=== PATIENT | female | born 1995 | race Caucasian/White ===

== ENCOUNTER 2016-03-20 15:49 | Inpatient (IN) ==
[2016-03-20] MEDS ORDERED: 0.9 % Sodium Chloride 1,000 ML IVC ONE (18:05)
[2016-03-20 18:42] LABS: Basophils # 0.1 K/mcL (0.0-0.2); Basophils % 0.5 %; Eosinophils % 0.1 %; Hematocrit 42.1 % (35.3-44.9); Hemoglobin 13.2 g/dL (11.5-15.4); Immature Granulocytes % 0.7 % (0-4); Immature Platelets 4.3 % (1.1-6.1); Lymphocytes # 3.1 K/mcL (0.6-4.6); Mean Corpuscular HGB Conc 31.4 g/dL (31.6-35.5); Mean Corpuscular Hemoglobin 27.7 pg (28.0-33.3); Mean Corpuscular Volume 88.3 fL (83.0-100.0); Mean Platelet Volume 10.4 fL (9.4-12.4); Monocytes # 1.4 K/mcL (0.0-1.3); Monocytes % 9.4 %; Neutrophils # 10.6 K/mcL (1.6-8.9); Platelet Count 265 K/mcL (140-400); Red Blood Count 4.77 M/mcL (3.82-4.97); Red Cell Distribution Width 13.6 % (11.5-14.5); Segmented Neutrophils % 69.3 %
[2016-03-20 18:54] LABS: BUN/Creatinine Ratio 10 (6-26); Blood Urea Nitrogen 11 mg/dL (7-20); Calcium 9.4 mg/dL (8.6-10.8); Carbon Dioxide 20 mEq/L (19-29); Chloride 103 mEq/L (98-109); Glucose 98 mg/dL (70-99); Osmolality,Calculated 279 (280-300); Potassium 4.3 mEq/L (3.5-4.5); Sodium 135 mEq/L (136-145); eGFR For African Americans > 60; eGFR For Non-African Americans > 60
--- NOTE | 2016-03-20 21:30 | Emergency Department Note ---
Disposition Clinical Impression: Pyelonephritis Disposition: Home, Self-Care Condition: Good Referrals: NO,PCP [Primary Care Provider] - Forms: Work/School Release, ED Satisfaction Letter Abdominal Pain HPI - General Chief Complaint: ED Abdominal Pain Stated Complaint: Abdominal Pain Time Seen by Provider: 03/20/16 17:44 Source: patient Nursing Notes Reviewed: Yes Vital Signs Reviewed: Yes - History of Present Illness HPI Narrative: 20-year-old female with history of abdominal pain, flank pain for approximately one week. Pain today is worsened and she has developed a fever. She has no urinary symptoms however admits the pain has progressed from her flank down into her suprapubic region. She is febrile on arrival here. She is tachycardic. Her blood pressure stable on arrival. Pain Scale: 6 - Related Data Home Medications Medication Instructions Recorded Confirmed No Known Home Drugs 03/20/16 03/20/16 Allergies Allergy/AdvReac Type Severity Reaction Status Date / Time No Known Allergies Allergy Verified 05/13/15 10:07 All systems ED: reviewed and negative except as stated. Abdominal Pain PMH - Past Medical History Medical history: Reports: no medical history Female Surgical History: Reports: appendectomy [employer] history: Reports: polycystic ovary syndrome Psychiatric history: Reports: no psych history - Social History Smoking status: Current some day smoker Alcohol use: Reports: none Drug use: Reports: none Physical Exam - General Limitations: no limitations General appearance: alert, in no apparent distress Course Vital Signs Temperature 102.1 F H 03/20/16 15:53 Pulse Rate 128 03/20/16 15:53 Respiratory Rate 16 03/20/16 15:53 Blood Pressure 114/84 03/20/16 15:53 O2 Sat by Pulse Oximetry 96 03/20/16 15:53 Temperature 102.1 F H 03/20/16 15:53 Pulse Rate 128 03/20/16 17:56 Respiratory Rate 16 03/20/16 17:56 Blood Pressure 114/84 03/20/16 17:56 O2 Sat by Pulse Oximetry 96 03/20/16 17:56 Oxygen Delivery Oxygen Delivery Room Air Abdominal Pain - MDM Narrative Medical decision making narrative: 20-year-old female with suspected pyelonephritis. CT evidence of pyelonephritis. Cultures obtained. She did meet systemic inflammatory response syndrome on arrival. Broad spectrum antibiotics were initiated. IV fluids were initiated. Plan to admit for antibiotic therapy, IV fluids, monitoring. - Lab Data Result diagrams: 03/20/16 18:29 03/20/16 18:29 Lab Results 03/20/16 03/20/16 03/20/16 Range/Units 18:29 18:29 18:29 WBC 15.3 H (4.3-11.1) K/mcL RBC 4.77 (3.82-4.97) M/mcL Hgb 13.2 (11.5-15.4) g/dL Hct 42.1 (35.3-44.9) % MCV 88.3 (83.0-100.0) fL MCH 27.7 L (28.0-33.3) pg MCHC 31.4 L (31.6-35.5) g/dL RDW 13.6 (11.5-14.5) % Plt Count 265 (140-400) K/mcL MPV 10.4 (9.4-12.4) fL Immature Gran % 0.7 (0-4) % Seg Neutrophils % 69.3 % Lymphocytes % 20.0 % Monocytes % 9.4 % Eosinophils % 0.1 % Basophils % 0.5 % Neutrophils # 10.6 H (1.6-8.9) K/mcL Lymphocytes # 3.1 (0.6-4.6) K/mcL Monocytes # 1.4 H (0.0-1.3) K/mcL Eosinophils # 0.0 (0.0-0.6) K/mcL Basophils # 0.1 (0.0-0.2) K/mcL Immature Plt Fraction 4.3 (1.1-6.1) % Sodium 135 L (136-145) mEq/L Potassium 4.3 (3.5-4.5) mEq/L Chloride 103 (98-109) mEq/L Carbon Dioxide 20 (19-29) mEq/L BUN 11 (7-20) mg/dL Creatinine 1.08 (0.57-1.11) mg/dL Est GFR ( Amer) > 60 Est GFR (Non-Af Amer) > 60 BUN/Creatinine Ratio 10 (6-26) Glucose 98 (70-99) mg/dL Calculated Osmolality 279 L (280-300) Lactic Acid 0.7 (0.5-2.2) mmol/L Calcium 9.4 (8.6-10.8) mg/dL Beta HCG, Quant < 1 (0-4) mIU/ml
[2016-03-20 22:35] LABS: Bilirubin,Urine Negative (Negative); Blood,Urine Trace (Negative); Clarity,Urine Cloudy (Clear); Color,Urine Yellow (Yellow); Glucose,Urine (UA) Normal (Normal); Ketones,Urine Trace mg/dL (Negative); Leukocyte Esterase,Urine Moderate (Negative); Nitrite,Urine Positive (Negative); Protein,Urine Trace mg/dL (Neg-Trace); Specific Gravity,Urine > 1.030 (1.010-1.025); Urobilinogen,Urine Normal (Normal)
[2016-03-20 22:38] LABS: Bacteria,Urine Many per hpf (None-Few); Squamous Epithelial Cell,Urine Many per lpf (None-Few); WBC,Urine TNTC per hpf (0-3)
[2016-03-20 22:48] LABS: Hyaline Casts,Urine Few per lpf (None-Few); Yeast,Urine Moderate per hpf (None Seen)
[2016-03-21] MEDS ORDERED: Acetaminophen 325 MG TABLET PO PRN (00:34)
[2016-03-21] MEDS ORDERED: *HR* OxyCODONE Immed Rel 5 MG TABLET PO PRN (00:34)
[2016-03-21] MEDS ORDERED: Naloxone 0.4 MG/ML INJ IVP PRN (00:34)
[2016-03-21] MEDS ORDERED: Ondansetron ODT 4 MG TAB.RAPDIS SL PRN (00:34)
--- NOTE | 2016-03-21 00:45 | Internal Med History&Physical ---
Date of Encounter: 03/21/16 Time of Encounter: 00:39 Assessment and Plan (1) Pyelonephritis Current visit: Yes Status: Acute 1. Blood and urine cultures collected in ER. 2. Will continue aggressive IVF hydration. 3. Will treat with IV antibiotics and adjust according to blood and urine culture results. 4. Pain and nausea control. 5. Consider repeat imaging if symptoms do not improve in 36-48 hours. 6. Recommend outpatient urology consultation given history of recurrent UTI. (2) DVT prophylaxis Current visit: Yes Status: Acute 1. Heparin SQ. Internal Medicine - H&P: HPI Chief complaint: flank pain, fever, vomiting, dysuria Admitted From: Emergency Dept Plans for Post Hospital Care: Home History of present illness: Ms. Rubio is a 20 year old female who presents with a 2 week history of dysuria, urinary urgency, frequency, flank pain, nausea, vomiting, and most recently fevers. She did not go to the ER or urgent care until today because [place] and she was concerned that her insurance would not cover out of state hospitals. She returned back to the [facility] recently and, because of persistent and worsening symptoms, she was seen and evaluated in the ER today. In the ER, she was found to have evidence of pyelonephritis, dehydration, and significant flank pain. She was therefore admitted to hospitalist service. Upon my assessment of the patient, she appears quite uncomfortable, ill- appearing, dehydrated, but nontoxic. She has a history of recurrent UTI and has had several UTIs in the last year. She has never had pyelonephritis or hospitalization for UTI in the past, however. Workup in the ER included routine labs, urinalysis, and CT of the abdomen and pelvis confirming suspicion of pyelonephritis. There is also concern of lung pathology on the limited lung views of her CT of abdomen. She denies any chronic lung disease, but she has had recent pneumonia, however. She denies any chest pain or difficulty breathing presently. She does smoke on rare occasions. She states that she and her have been trying to get recently but have been unsuccessful. Of note, her urine test was negative in the ER. Past Med Surg Social Fam HX - Past Medical History Attestation: Yes The following information was validated with the patient. Source: patient, obtained from family Medical history: other (recurrent UTI) Psychiatric history: no psych history - Past Surgical History Surgical History: appendectomy - Social History Smoking Status: Current some day smoker Smokeless Tobacco Status: No Alcohol use: none Drug use: none Current living situation: Home, With Family Activity Level: Independent ambulation Recent Out of Country Travel Within the Last 8 Weeks: No - Family History Father Living Status: Still Living Hx Family Genitourinary Disorders: Yes (CKD) Mother Living Status: Still Living Internal Medicine - H&P: Meds No Known Home Drugs 03/20/16 [History] Allergies shellfish derived Allergy (Verified 03/21/16 00:12) Swelling of Lip/Tongue/Throat Patient states she is allergic to all "seafood". - Constitutional Constitutional: chills, fever(s), no night sweats - EENT Eyes: no blurry vision, no change in vision Ears: no ear pain, no tinnitus Nose, mouth and throat: no nasal congestion, no nasal discharge, no sinus pressure, no sore throat - Cardiovascular Cardiovascular ROS IM: no chest pain, no dyspnea, no dyspnea on exertion - Respiratory Respiratory: no cough, no dyspnea, no hemoptysis, no wheezing - Gastrointestinal Gastrointestinal: nausea, vomiting, no abdominal pain, no diarrhea, no hematemesis, no hematochezia, no melena - Genitourinary Genitourinary: dysuria, flank pain, no hematuria - Musculoskeletal Musculoskeletal ROS IM: no arthralgias, no back pain, no joint swelling - Integumentary Integumentary IM: no rash, no jaundice - Neurological Neurological ROS: no dizziness, no focal weakness, no frequent falls, no headache(s) - Psychiatric Psychiatric: no anxiety, no depression - Endocrine Endocrine IM: no cold intolerance, no heat intolerance, no polydipsia, no polyuria - Hematologic/Lymphatic Hematologic/Lymphatic: no easy bruising, no lymphadenopathy - Allergic/Immunologic Allergic/Immunologic: no wheezing, no GI upset with certain foods - Constitutional Vitals: Temp Pulse Resp BP Pulse Ox 98 F 98 13 115/76 96 03/20/16 23:46 03/20/16 23:46 03/20/16 23:46 03/20/16 23:46 03/20/16 23:46 General appearance: Present: cooperative, mild distress, A&O X 3, pleasant - Head Head exam: Present: atraumatic, normal inspection - Expanded Head Exam Head exam expanded: Absent: abrasion, contusion, general tenderness - Eye Eye exam: Present: normal appearance, PERRL. Absent: scleral icterus Pupils: Present: normal accommodation - ENT ENT exam: Present: mucous membranes dry, normal exam, normal oropharynx - Neck Neck exam general surgery: Present: full ROM, normal inspection, supple. Absent : tenderness, thyromegaly - Respiratory Respiratory exam: Present: CTAB. Absent: chest wall tenderness, rales, rhonchi , wheezes - Cardiovascular Cardiovascular exam: Present: RRR, +S1, +S2. Absent: diastolic murmur, systolic murmur - GI/Abdominal GI/Abdominal exam: Present: normal bowel sounds, soft, tenderness (LUQ-->left flank), no peritoneal signs. Absent: guarding, hepatomegaly, mass, rebound, splenomegaly - Extremities Exam Extremities exam: Present: warm. Absent: calf tenderness, full ROM, joint swelling, pedal edema - Back Exam Back exam: Present: CVA tenderness (L), normal inspection. Absent: CVA tenderness (R) - Neurological Exam Neurological exam: Present: alert, CN II-XII intact, oriented X3, no focal deficits - Psychiatric Psychiatric exam: Present: normal affect, normal mood - Skin Skin exam: Present: dry, warm. Absent: rash Internal Med - H&P Results - Labs CBC & Chem 7: 03/20/16 18:29 03/20/16 18:29 Labs: Urine 03/20/16 Range/Units 22:30 Urine Color Yellow (Yellow) Urine Clarity Cloudy A (Clear) Urine pH 6.0 (5.0-8.0) pH Units Ur Specific [place] > 1.030 H (1.010-1.025) Urine Protein Trace (Neg-Trace) mg/dL Urine Glucose (UA) Normal (Normal) mg/dL - Diagnostic Studies CT scan - abdomen Additional comments: report/results reviewed
[2016-03-21] MEDS: *HR* Heparin 5,000 UNIT/ML VIAL SQ SCH ×3 (00:54→17:23)
[2016-03-21] MEDS: Pantoprazole 40 MG VIAL IVP SCH ×2 (01:09→08:09)
[2016-03-21] MEDS: 0.9 % Sodium Chloride 1,000 ML IVC SCH ×3 (01:09→19:00)
[2016-03-21 04:42] LABS: Basophils # 0.1 K/mcL (0.0-0.2); Basophils % 0.6 %; Eosinophils # 0.1 K/mcL (0.0-0.6); Eosinophils % 0.5 %; Hematocrit 35.6 % (35.3-44.9); Hemoglobin 11.7 g/dL (11.5-15.4); Immature Granulocytes % 0.6 % (0-4); Lymphocytes # 3.4 K/mcL (0.6-4.6); Lymphocytes % 23.8 %; Mean Corpuscular HGB Conc 32.9 g/dL (31.6-35.5); Mean Corpuscular Hemoglobin 28.7 pg (28.0-33.3); Mean Corpuscular Volume 87.3 fL (83.0-100.0); Mean Platelet Volume 10.8 fL (9.4-12.4); Monocytes # 1.6 K/mcL (0.0-1.3); Monocytes % 11.3 %; Neutrophils # 9.1 K/mcL (1.6-8.9); Platelet Count 211 K/mcL (140-400); Red Blood Count 4.08 M/mcL (3.82-4.97); Red Cell Distribution Width 13.6 % (11.5-14.5); Segmented Neutrophils % 63.2 %
[2016-03-21 04:58] LABS: Alanine Aminotransferase 24 Units/L (0-55); Albumin 2.8 g/dL (3.5-5.0); Albumin/Globulin Ratio 0.5 (1.1-2.2); Alkaline Phosphatase 70 Units/L (38-126); Aspartate Amino Transferase 20 Units/L (5-34); BUN/Creatinine Ratio 11 (6-26); Bilirubin,Total 0.4 mg/dL (0.2-1.2); Blood Urea Nitrogen 10 mg/dL (7-20); Calcium 8.8 mg/dL (8.6-10.8); Carbon Dioxide 17 mEq/L (19-29); Chloride 110 mEq/L (98-109); Globulin 5.8 g/dL (2.4-3.5); Glucose 121 mg/dL (70-99); Magnesium 2.1 mg/dL (1.7-2.2); Osmolality,Calculated 282 (280-300); Potassium 4.5 mEq/L (3.5-4.5); Sodium 136 mEq/L (136-145); Total Protein 8.6 g/dL (6.0-8.3); eGFR For African Americans > 60; eGFR For Non-African Americans > 60
[2016-03-21] MEDS: *HR* Morphine 2 MG/ML SYRINGE IVP PRN ×2 (06:00→20:34)
--- NOTE | 2016-03-21 14:08 | Internal Med Progress Note ---
Date of Encounter: 03/21/16 Time of Encounter: 14:05 - Assessment and plan (1) Sepsis Current Visit: Yes Status: Acute Assessment and plan: Secondary to left pyelonephritis Tachycardia in white blood cell count of 15.3 Continue Rocephin IV, follow cultures Continue IV fluids CT scan showed possible left pyelonephritis Qualifiers: Sepsis type: sepsis due to unspecified organism Qualified Code(s): A41.9 - Sepsis, unspecified organism (2) Tobacco abuse Current Visit: Yes Status: Acute Assessment and plan: Smoking cessation counseling, nicotine patch offered (3) PCOS (polycystic ovarian syndrome) Current Visit: Yes Status: Acute Assessment and plan: Used to be on metformin and oral contraceptives (4) Leukocytosis Current Visit: Yes Status: Acute Assessment and plan: Secondary to sepsis Qualifiers: Leukocytosis type: unspecified Qualified Code(s): D72.829 - Elevated white blood cell count, unspecified (5) Pyelonephritis Current Visit: Yes Status: Acute Assessment and plan: High risk due to sepsis and pyelonephritis - Time Spent With Patient Greater than 35 minutes - Subjective Interval history: Denies any left flank pain she was having before, no fevers overnight, no abdominal pain, less dysuria. No abdominal pain, no cough, shortness of breath or chest pain. - Constitutional Vitals: Temp Pulse Resp BP Pulse Ox 97.5 F L 118 18 133/79 96 03/21/16 11:43 03/21/16 11:43 03/21/16 11:43 03/21/16 11:43 03/21/16 11:43 General appearance: Present: cooperative, mild distress, A&O X 3, pleasant, obese - Head Head exam: Present: atraumatic, normocephalic - Eye Eye exam: Present: PERRL, conjuntiva pink, sclera anicteric Pupils: Present: PERRL - Neck Neck exam general surgery: Present: supple, trachea midline. Absent: lymphadenopathy - Respiratory Respiratory exam: Present: CTAB. Absent: accessory muscle use, rales, rhonchi, wheezes - Cardiovascular Cardiovascular exam: Present: RRR, +S1, +S2, tachycardia. Absent: diastolic murmur, gallop, rubs, systolic murmur - GI/Abdominal GI/Abdominal exam: Present: normal bowel sounds, soft, no peritoneal signs. Absent: distended, tenderness - Extremities Exam Extremities exam: Present: warm, radial pulses palpable and symetrical. Absent : calf tenderness, cyanotic, pedal edema - Neurological Exam Neurological exam: Present: CN II-XII intact, oriented X3, no focal deficits. Absent: pronater drift, facial droop, speech deficit - Skin Skin exam: Present: dry, intact Internal Medicine: Result - Labs CBC & Chem 7: 03/21/16 04:27 03/21/16 04:27 Labs: Short CBC 03/21/16 Range/Units 04:27 WBC 14.4 H (4.3-11.1) K/mcL Hgb 11.7 D (11.5-15.4) g/dL Hct 35.6 (35.3-44.9) % Plt Count 211 (140-400) K/mcL Neutrophils # 9.1 H (1.6-8.9) K/mcL BMP 03/21/16 04:27 Sodium 136 Potassium 4.5 Chloride 110 H Carbon Dioxide 17 L BUN 10 Creatinine 0.89 Glucose 121 H Calcium 8.8 Liver Function 03/21/16 Range/Units 04:27 Total Bilirubin 0.4 (0.2-1.2) mg/dL AST 20 (5-34) Units/L ALT 24 (0-55) Units/L Alkaline Phosphatase 70 (38-126) Units/L Albumin 2.8 L (3.5-5.0) g/dL - Impressions Impressions Chest CT 03/21/16 08:15 IMPRESSION: Partially calcified mediastinal and bilateral hilar lymph nodes, some of which appear prominent in the right hilar and mediastinal regions as above. In addition there are numerous scattered subcentimeter pulmonary nodules measuring maximally 6 mm in size, some of which are noncalcified while others are partially calcified. Constellation of findings are felt most likely to reflect granulomatous disease such as histoplasmosis. If the patient develops chest symptoms or there is other clinical indication, consideration could be given to bronchoscopy. However, in addition there are some irregular small opacities noted to the right upper lobe and to the superior segment of the left lower lobe which could relate to the same process or could reflect a separate nonspecific infectious or inflammatory process and follow-up chest CT in 2-3 months is recommended to assure stability versus resolution. The other findings could also be assessed at the same time. D/ 03/21/2016 11:59:51 Salvador Espinoza MD / Jenny Mejia Interpreting Provider: Salvador Espinoza MD Consult Discharge Plan - Plan Referrals: NO,PCP [Primary Care Provider] -
[2016-03-21] MEDS: Nicotine 21 MG PATCH.TD24 TD SCH (17:23)
[2016-03-22] MEDS: 0.9 % Sodium Chloride 1,000 ML IVC SCH ×2 (03:18→12:48)
[2016-03-22] MEDS: *HR* Heparin 5,000 UNIT/ML VIAL SQ SCH ×2 (06:23→19:39)
[2016-03-22] MEDS: Pantoprazole 40 MG VIAL IVP SCH (09:54)
[2016-03-22] MEDS: Nicotine 21 MG PATCH.TD24 TD SCH (09:54)
--- NOTE | 2016-03-22 11:55 | Internal Med Progress Note ---
Date of Encounter: 03/22/16 Time of Encounter: 11:53 - Assessment and plan (1) Sepsis Current Visit: Yes Status: Acute Assessment and plan: Secondary to left pyelonephritis, improving Tachycardia in white blood cell count of 15.3, fever of 102 upon admission Rocephin IV day 2 Cultures growing gram-negative bacteria Continue IV fluids CT scan showed possible left pyelonephritis Qualifiers: Sepsis type: sepsis due to unspecified organism Qualified Code(s): A41.9 - Sepsis, unspecified organism (2) Tobacco abuse Current Visit: Yes Status: Acute Assessment and plan: Smoking cessation counseling, nicotine patch offered (3) PCOS (polycystic ovarian syndrome) Current Visit: Yes Status: Acute Assessment and plan: Used to be on metformin and oral contraceptives (4) Leukocytosis Current Visit: Yes Status: Acute Assessment and plan: Secondary to sepsis Qualifiers: Leukocytosis type: unspecified Qualified Code(s): D72.829 - Elevated white blood cell count, unspecified (5) Pyelonephritis Current Visit: Yes Status: Acute Assessment and plan: High risk due to sepsis and pyelonephritis - Time Spent With Patient Greater than 35 minutes - Subjective Interval history: Very sleepy Denies any left flank pain at the moment, no fevers overnight, no abdominal pain , less dysuria. No abdominal pain, no cough, shortness of breath or chest pain. - Constitutional Vitals: Temp Pulse Resp BP Pulse Ox 98.0 F 87 14 97/65 96 03/22/16 11:27 03/22/16 11:27 03/22/16 11:27 03/22/16 11:27 03/22/16 11:27 General appearance: Present: cooperative, mild distress, A&O X 3, pleasant, obese - Head Head exam: Present: atraumatic, normocephalic - Eye Eye exam: Present: PERRL, conjuntiva pink, sclera anicteric Pupils: Present: PERRL - Neck Neck exam general surgery: Present: supple, trachea midline. Absent: lymphadenopathy - Respiratory Respiratory exam: Present: CTAB. Absent: accessory muscle use, rales, rhonchi, wheezes - Cardiovascular Cardiovascular exam: Present: RRR, +S1, +S2. Absent: diastolic murmur, gallop, rubs, systolic murmur - GI/Abdominal GI/Abdominal exam: Present: normal bowel sounds, soft, no peritoneal signs. Absent: distended, tenderness - Extremities Exam Extremities exam: Present: warm, radial pulses palpable and symetrical. Absent : calf tenderness, cyanotic, pedal edema - Neurological Exam Neurological exam: Present: CN II-XII intact, oriented X3, no focal deficits. Absent: pronater drift, facial droop, speech deficit - Skin Skin exam: Present: dry, intact Internal Medicine: Result - Labs CBC & Chem 7: 03/21/16 04:27 03/21/16 04:27 - Impressions Impressions Chest CT 03/21/16 08:15 IMPRESSION: Partially calcified mediastinal and bilateral hilar lymph nodes, some of which appear prominent in the right hilar and mediastinal regions as above. In addition there are numerous scattered subcentimeter pulmonary nodules measuring maximally 6 mm in size, some of which are noncalcified while others are partially calcified. Constellation of findings are felt most likely to reflect granulomatous disease such as histoplasmosis. If the patient develops chest symptoms or there is other clinical indication, consideration could be given to bronchoscopy. However, in addition there are some irregular small opacities noted to the right upper lobe and to the superior segment of the left lower lobe which could relate to the same process or could reflect a separate nonspecific infectious or inflammatory process and follow-up chest CT in 2-3 months is recommended to assure stability versus resolution. The other findings could also be assessed at the same time. D/ /21/2016 11:59:51 Salvador Espinoza MD / Jenny Mejia Interpreting Provider: Salvador Espinoza MD Consult Discharge Plan - Plan Referrals: NO,PCP [Primary Care Provider] -
[2016-03-22] MEDS ORDERED: 0.9 % Sodium Chloride 1,000 ML ONE (12:24)
[2016-03-22] MEDS: Famotidine 20 MG TABLET PO SCH (19:39)
[2016-03-23] MEDS: *HR* Heparin 5,000 UNIT/ML VIAL SQ SCH ×2 (04:46→17:47)
[2016-03-23] MEDS: 0.9 % Sodium Chloride 1,000 ML IVC SCH ×2 (04:47→15:26)
[2016-03-23] MEDS: Famotidine 20 MG TABLET PO SCH ×2 (08:35→22:07)
[2016-03-23] MEDS: Nicotine 21 MG PATCH.TD24 TD SCH (08:35)
[2016-03-23] MEDS: Nitrofurantoin (BID) 100 MG CAPSULE PO SCH ×2 (08:50→17:44)
[2016-03-23 08:58] LABS: Basophils # 0.1 K/mcL (0.0-0.2); Basophils % 0.8 %; Eosinophils # 0.2 K/mcL (0.0-0.6); Eosinophils % 2.3 %; Hematocrit 37.4 % (35.3-44.9); Hemoglobin 11.9 g/dL (11.5-15.4); Immature Granulocytes % 0.7 % (0-4); Lymphocytes % 31.1 %; Mean Corpuscular HGB Conc 31.8 g/dL (31.6-35.5); Mean Corpuscular Hemoglobin 28.1 pg (28.0-33.3); Mean Corpuscular Volume 88.4 fL (83.0-100.0); Mean Platelet Volume 11.2 fL (9.4-12.4); Monocytes # 0.8 K/mcL (0.0-1.3); Monocytes % 8.2 %; Neutrophils # 5.5 K/mcL (1.6-8.9); Platelet Count 241 K/mcL (140-400); Red Blood Count 4.23 M/mcL (3.82-4.97); Red Cell Distribution Width 13.2 % (11.5-14.5); Segmented Neutrophils % 56.9 %
[2016-03-23 09:10] LABS: BUN/Creatinine Ratio 11 (6-26); Blood Urea Nitrogen 8 mg/dL (7-20); Calcium 8.8 mg/dL (8.6-10.8); Carbon Dioxide 21 mEq/L (19-29); Chloride 109 mEq/L (98-109); Glucose 99 mg/dL (70-99); Osmolality,Calculated 288 (280-300); Potassium 4.6 mEq/L (3.5-4.5); Sodium 140 mEq/L (136-145); eGFR For African Americans > 60; eGFR For Non-African Americans > 60
--- NOTE | 2016-03-23 13:53 | Internal Med Progress Note ---
Date of Encounter: 03/23/16 Time of Encounter: 13:50 - Assessment and plan (1) Sepsis Current Visit: Yes Status: Acute Assessment and plan: Secondary to left pyelonephritis not improving Tachycardia, white blood cell count of 15.3, fever of 102 upon admission Discontinue Rocephin IV day 2 as the patient grew ESBL Escherichia coli sensitive to meropenem and nitrofurantoin Start meropenem and nitrofurantoin Continue IV fluids CT scan showed possible left pyelonephritis Qualifiers: Sepsis type: sepsis due to unspecified organism Qualified Code(s): A41.9 - Sepsis, unspecified organism (2) Tobacco abuse Current Visit: Yes Status: Acute Assessment and plan: Smoking cessation counseling, nicotine patch offered (3) PCOS (polycystic ovarian syndrome) Current Visit: Yes Status: Acute Assessment and plan: Used to be on metformin and oral contraceptives (4) Leukocytosis Current Visit: Yes Status: Acute Assessment and plan: Secondary to sepsis Qualifiers: Leukocytosis type: unspecified Qualified Code(s): D72.829 - Elevated white blood cell count, unspecified (5) Pyelonephritis Current Visit: Yes Status: Acute Assessment and plan: High risk due to sepsis and pyelonephritis - Time Spent With Patient Greater than 35 minutes - Subjective Interval history: The patient is to complaining of lower abdominal pain 5 out of 10 in intensity, pelvic area is very tender, she is sweaty. Complains of chills Complains of bilateral flank pain at the moment, no fevers overnight, no abdominal pain, less dysuria. No cough, shortness of breath or chest pain. - Constitutional Vitals: Temp Pulse Resp BP Pulse Ox 98.3 F 78 16 106/73 98 03/23/16 11:13 03/23/16 11:13 03/23/16 11:13 03/23/16 11:13 03/23/16 11:13 General appearance: Present: cooperative, mild distress, A&O X 3, pleasant, obese - Head Head exam: Present: atraumatic, normocephalic - Eye Eye exam: Present: PERRL, conjuntiva pink, sclera anicteric Pupils: Present: PERRL - Neck Neck exam general surgery: Present: supple, trachea midline. Absent: lymphadenopathy - Respiratory Respiratory exam: Present: CTAB. Absent: accessory muscle use, rales, rhonchi, wheezes - Cardiovascular Cardiovascular exam: Present: RRR, +S1, +S2. Absent: diastolic murmur, gallop, rubs, systolic murmur - GI/Abdominal GI/Abdominal exam: Present: normal bowel sounds, soft, tenderness (No abdomen tenderness, bilateral flank tenderness), no peritoneal signs. Absent: distended - Extremities Exam Extremities exam: Present: warm, radial pulses palpable and symetrical. Absent : calf tenderness, cyanotic, pedal edema - Neurological Exam Neurological exam: Present: CN II-XII intact, oriented X3, no focal deficits. Absent: pronater drift, facial droop, speech deficit - Skin Skin exam: Present: dry, intact Internal Medicine: Result - Labs CBC & Chem 7: 03/23/16 08:19 03/23/16 08:19 Labs: Short CBC 03/23/16 Range/Units 08:19 WBC 9.7 (4.3-11.1) K/mcL Hgb 11.9 (11.5-15.4) g/dL Hct 37.4 (35.3-44.9) % Plt Count 241 (140-400) K/mcL Neutrophils # 5.5 (1.6-8.9) K/mcL BMP 03/23/16 08:19 Sodium 140 Potassium 4.6 H Chloride 109 Carbon Dioxide 21 BUN 8 Creatinine 0.74 Glucose 99 Calcium 8.8 Consult Discharge Plan - Plan Referrals: NO,PCP [Primary Care Provider] -
[2016-03-23] MEDS: Meropenem 1,000 MG in 0.9 % Sodium Chloride Mini Bag 100 ML IVPB SCH ×2 (15:25→22:08)
[2016-03-23 23:52] VITALS: BP 96/58
[2016-03-24] MEDS ORDERED: Temazepam 15 MG CAPSULE PO ONE (01:58)
[2016-03-24] MEDS: Meropenem 1,000 MG in 0.9 % Sodium Chloride Mini Bag 100 ML IVPB SCH ×2 (05:10→12:15)
[2016-03-24] MEDS: *HR* Heparin 5,000 UNIT/ML VIAL SQ SCH (05:13)
[2016-03-24] MEDS: Famotidine 20 MG TABLET PO SCH (08:17)
[2016-03-24] MEDS: Nitrofurantoin (BID) 100 MG CAPSULE PO SCH (08:24)
[2016-03-24] MEDS: 0.9 % Sodium Chloride 1,000 ML IVC SCH (08:25)
[2016-03-24] MEDS: Nicotine 21 MG PATCH.TD24 TD SCH (08:29)
--- NOTE | 2016-03-24 08:29 | Discharge Summary ---
Date of Encounter: 03/24/16 Time of Encounter: 08:27 - Discharge Diagnosis (1) Sepsis Priority: Primary Status: Acute Comments: Sepsis secondary to left acute pyelonephritis with ESBL Escherichia coli Qualifiers: Sepsis type: sepsis due to unspecified organism Qualified Code(s): A41.9 - Sepsis, unspecified organism (2) Tobacco abuse Priority: Secondary Status: Acute Comments: Smoking cessation counseling given for 5 min (3) PCOS (polycystic ovarian syndrome) Priority: Secondary Status: Acute (4) Leukocytosis Priority: Secondary Status: Acute Qualifiers: Leukocytosis type: unspecified Qualified Code(s): D72.829 - Elevated white blood cell count, unspecified (5) Pyelonephritis Priority: Primary Status: Acute - Discharge Medications Prescriptions: OxyCODONE Immed Rel [Roxicodone 5 MG] 5 mg PO Q6HR PRN #20 tablet PRN Reason: Moderate Pain (4-6) Nitrofurantoin (BID) [Macrobid] 100 mg PO BIDWM #20 capsule Home Medications: Nitrofurantoin (BID) [Macrobid] 100 mg PO BIDWM #20 capsule 03/24/16 [Rx] OxyCODONE Immed Rel [Roxicodone 5 MG] 5 mg PO Q6HR PRN #20 tablet 03/24/16 [Rx] Allergies/Adverse Reactions: Allergies shellfish derived Allergy (Verified 03/21/16 00:12) Swelling of Lip/Tongue/Throat Patient states she is allergic to all "seafood". Date of admission: 03/21/16 00:48 Primary care physician: PCP NO - Patient Status Disposition: Home, Self-Care Condition: Good - Discharge Instructions Follow Up With: NO,PCP [Primary Care Provider] - Additional Instructions: Follow with a primary care physician within the next 7 days. Complete 10 days of nitrofurantoin 100 mg twice a day. Quit smoking. Discusse with primary care physician the need of CT scan of the chest within the next 2-3 months as CAT scan showed small nodules. - Diet and Activity Activity: increase activity as tolerated Diet: regular diet Hospital course: Ms. Rubio is a 20 year old female with a past medical history of tobacco use and polycystic ovarian syndrome used to take metformin and contraceptives,who presented with a 2 week history of dysuria, urinary urgency, frequency, flank pain, nausea, vomiting, and most recently fevers. She did not go to the ER or urgent care initially [place] and she was concerned that her insurance would not cover out of state hospitals. She returned back to the [facility] recently and, because of persistent and worsening symptoms, she was seen and evaluated in the ER . In the ER, she was found to have evidence of pyelonephritis, dehydration, and significant flank pain. She was therefore admitted to hospitalist service. The patient appeared quite uncomfortable, ill-appearing, dehydrated. She had a history of recurrent UTI and has had several UTIs in the last year. CT of the abdomen and pelvis confirming suspicion of pyelonephritis. There is also concern of lung pathology on the limited lung views of her CT of abdomen. She denies any chronic lung disease, but she has had recent pneumonia. She denies any chest pain or difficulty breathing presently. She does smoke. CT scan of the chest showed partially calcified mediastinal and bilateral thom lymph nodes more prominent in the right, there are numerous scattered subcentimeter pulmonary nodules measuring 6 mm in size with the patient denies any respiratory symptoms whatsoever, she was advised to have a CT scan of the chest in 2-3 months. Initially the patient received Rocephin she had a fever of 102.1. Her white blood cell count was 15, hayfever did not come back in her while blood cell count normalized. The patient is urine culture came back positive for Escherichia coli ESBL sensitive to meropenem and nitrofurantoin, she was started on these 2 antibiotics today her symptoms have resolved completely she is no longer complaining of any back pain or lower abdominal pain. Her white blood cell count is below 10. She prefers to be discharged home and was advised to come back to emergency room if her condition does not improve as she understands that meropenem cannot be given as an outpatient without a PICC line , risks were discussed she was offered today option to stay another day for severe discharged on nitrofurantoin. Time spent discussing smoking cessation with patient: 3 to 10 minutes - Time Spent with Patient Total time spent providing and/or coordinating discharge services: Greater than 30 minutes - Constitutional Vitals: Temp Pulse Resp BP Pulse Ox 98.0 F 90 16 96/58 95 03/24/16 07:01 03/24/16 07:01 03/24/16 07:01 03/24/16 07:01 03/24/16 07:01 General appearance: Present: cooperative, mild distress, A&O X 3, pleasant, obese - Head Head exam: Present: atraumatic, normocephalic - Eye Eye exam: Present: PERRL, conjuntiva pink, sclera anicteric Pupils: Present: PERRL - Neck Neck exam general surgery: Present: supple, trachea midline. Absent: lymphadenopathy - Respiratory Respiratory exam: Present: CTAB. Absent: accessory muscle use, rales, rhonchi, wheezes - Cardiovascular Cardiovascular exam: Present: RRR, +S1, +S2. Absent: diastolic murmur, gallop, rubs, systolic murmur - GI/Abdominal GI/Abdominal exam: Present: normal bowel sounds, soft, no peritoneal signs. Absent: distended, tenderness - Extremities Exam Extremities exam: Present: warm, radial pulses palpable and symetrical. Absent : calf tenderness, cyanotic, pedal edema - Neurological Exam Neurological exam: Present: CN II-XII intact, oriented X3, no focal deficits. Absent: pronater drift, facial droop, speech deficit - Skin Skin exam: Present: dry, intact
== END 2016-03-24 13:13 | disposition home or self-care (01) | DRG 720 ==
LOC: 3BNU 15:49 → EMEROO 15:49 → 3BNU 23:26 → SUATTDRO 03-21 00:48
PROVIDERS: ADMIT Internal Medicine; ATTEND Internal Medicine

== ENCOUNTER 2020-07-19 22:24 | Observation (INO) ==
[2020-07-19] MEDS ORDERED: 0.9 % Sodium Chloride 1,000 ML IVC ONE (23:46)
[2020-07-19] MEDS ORDERED: Isovue-370 500 ML BOTTLE IVP ONE (23:46)
[2020-07-19 23:54] LABS: Bilirubin,Urine Negative (Negative); Blood,Urine Moderate (Negative); Clarity,Urine Turbid (Clear); Color,Urine Yellow (Yellow); Glucose,Urine (UA) Normal (Normal); Ketones,Urine Negative (Negative); Leukocyte Esterase,Urine Large (Negative); Mucus,Urine Few per lpf (None-Few); Nitrite,Urine Negative (Negative); Protein,Urine 100 mg/dL (Neg-Trace); RBC,Urine 50-100 per hpf (0-3); Renal Epithelial Cells,Urine Few per hpf (None-Few); Specific Gravity,Urine 1.025 (1.010-1.025); Squamous Epithelial Cell,Urine Moderate per hpf (None-Few); Transitional Epi Cells,Urine Few per hpf (None-Few); Urobilinogen,Urine Normal (Normal); WBC,Urine TNTC per hpf (0-3)
[2020-07-20 00:51] LABS: Basophils # 0.1 K/mcL (0.0-0.2); Basophils % 0.6 %; Eosinophils # 0.2 K/mcL (0.0-0.6); Eosinophils % 1.3 %; Hematocrit 39.7 % (35.3-44.9); Hemoglobin 12.5 g/dL (11.5-15.4); Immature Granulocytes % 0.8 % (0-4); Lymphocytes # 3.7 K/mcL (0.6-4.6); Lymphocytes % 23.1 %; Mean Corpuscular HGB Conc 31.5 g/dL (31.6-35.5); Mean Corpuscular Hemoglobin 28.2 pg (28.0-33.3); Mean Corpuscular Volume 89.6 fL (83.0-100.0); Mean Platelet Volume 10.8 fL (9.4-12.4); Monocytes # 1.3 K/mcL (0.0-1.3); Neutrophils # 10.6 K/mcL (1.6-8.9); Platelet Count 268 K/mcL (140-400); Red Blood Count 4.43 M/mcL (3.82-4.97); Red Cell Distribution Width 13.4 % (11.5-14.5); Segmented Neutrophils % 66.2 %; White Blood Count 15.9 K/mcL (4.3-11.1)
[2020-07-20 01:00] LABS: Amphetamine Screen,Urine Negative ng/mL (Cutoff=1000); Barbiturate Screen,Urine Negative ng/mL (Cutoff=200); Benzodiazepines Screen,Urine Negative ng/mL (Cutoff=200); Cannabinoid Screen,Urine Negative ng/mL (Cutoff = 50); Cocaine Screen,Urine Negative ng/mL (Cutoff= 300); INR 1.1; Opiate Screen,Urine Negative ng/mL (Cutoff=300); Phencyclidine Screen,Urine Negative ng/mL (Cutoff=25); Prothrombin Time 12.4 Seconds (9.4-12.1)
[2020-07-20 01:10] LABS: Alanine Aminotransferase 37 Units/L (7-52); Albumin 4.3 g/dL (3.5-5.7); Albumin/Globulin Ratio 1.2 (1.1-2.2); Alkaline Phosphatase 79 Units/L (34-104); Aspartate Amino Transferase 22 Units/L (13-39); BUN/Creatinine Ratio 16 (6-26); Bilirubin,Direct 0.1 mg/dL (0.0-0.2); Bilirubin,Indirect 0.5 mg/dL (0.0-1.0); Bilirubin,Total 0.6 mg/dL (0.3-1.0); Blood Urea Nitrogen 16 mg/dL (6-20); Calcium 9.5 mg/dL (8.6-10.3); Carbon Dioxide 27 mEq/L (23-29); Chloride 103 mEq/L (98-107); Globulin 3.5 g/dL (2.4-3.5); Glucose 132 mg/dL (70-105); Lipase 22 Units/L (11-82); Osmolality,Calculated 289 (280-300); Potassium 4.2 mEq/L (3.5-5.1); Sodium 138 mEq/L (136-145); Total Protein 7.8 g/dL (6.4-8.9); Troponin I < 0.03 ng/mL (< 0.04); eGFR For African Americans > 60 (> 60); eGFR For Non-African Americans > 60 (> 60)
[2020-07-20] MEDS ORDERED: cefTRIAXone 1,000 MG in 0.9 % Sodium Chloride Mini Bag 100 ML IVPB ONE (01:32)
[2020-07-20] MEDS ORDERED: 0.9 % Sodium Chloride 1,000 ML IVC ONE (01:33)
[2020-07-20] MEDS ORDERED: Naloxone 0.4 MG/ML INJ IVP PRN (03:28)
[2020-07-20] MEDS ORDERED: Acetaminophen 325 MG TABLET PO PRN (03:28)
[2020-07-20] MEDS ORDERED: Ondansetron 4 MG/2 ML VIAL IVP PRN (03:28)
[2020-07-20] MEDS ORDERED: Dextrose Gel 15 GM/37.5 ML TUBE PO PRN ×2 (03:34)
[2020-07-20] MEDS ORDERED: D5% in Water 1,000 ML IVC PRN (03:34)
[2020-07-20] MEDS ORDERED: *HR* Dextrose 50 % in Water (Vial) 50 ML VIAL IVP PRN (03:34)
[2020-07-20] MEDS ORDERED: 0.9 % Sodium Chloride 1,000 ML IVC SCH (03:45)
[2020-07-20] MEDS: *HR* Heparin 5,000 UNIT/ML VIAL SQ SCH ×3 (05:13→20:19)
[2020-07-20 06:02] LABS: Estimated Average Glucose 140 mg/dl; Hemoglobin A1C 6.5 %
[2020-07-20] MEDS ORDERED: Piperacillin/Tazobactam 3.375 GM in 0.9 % Sodium Chloride Mini Bag 100 ML IVPB SCH (08:00)
[2020-07-20] MEDS: Insulin LISPRO 300 UNITS/3 ML VIAL SUBQ SCH ×3 (08:31→17:22)
[2020-07-20] MEDS ORDERED: Insulin LISPRO 300 UNITS/3 ML VIAL SUBQ SCH (21:00)
[2020-07-21] MEDS: *HR* Heparin 5,000 UNIT/ML VIAL SQ SCH (05:24)
[2020-07-21 08:37] LABS: Hematocrit 40.8 % (35.3-44.9); Hemoglobin 12.9 g/dL (11.5-15.4); Mean Corpuscular HGB Conc 31.6 g/dL (31.6-35.5); Mean Corpuscular Hemoglobin 28.2 pg (28.0-33.3); Mean Corpuscular Volume 89.3 fL (83.0-100.0); Mean Platelet Volume 10.7 fL (9.4-12.4); Platelet Count 288 K/mcL (140-400); Red Blood Count 4.57 M/mcL (3.82-4.97); Red Cell Distribution Width 13.4 % (11.5-14.5); White Blood Count 12.8 K/mcL (4.3-11.1)
[2020-07-21 08:59] LABS: BUN/Creatinine Ratio 15 (6-26); Blood Urea Nitrogen 12 mg/dL (6-20); Calcium 9.4 mg/dL (8.6-10.3); Carbon Dioxide 25 mEq/L (23-29); Chloride 104 mEq/L (98-107); Glucose 145 mg/dL (70-105); Osmolality,Calculated 284 (280-300); Potassium 4.3 mEq/L (3.5-5.1); Sodium 136 mEq/L (136-145); eGFR For African Americans > 60 (> 60); eGFR For Non-African Americans > 60 (> 60)
[2020-07-21] MEDS ORDERED: cefTRIAXone 1,000 MG in Water for inj. (sterile) 10 ML IVP SCH (09:00)
[2020-07-21] MEDS: Insulin LISPRO 300 UNITS/3 ML VIAL SUBQ SCH (10:40)
[2020-07-21 11:20] VITALS: BP 118/69
== END 2020-07-21 12:28 | disposition home or self-care (01) ==
LOC: EMEROOARM 22:24 → CDU 22:24 → SUATTDRO 07-20 03:06 → 2NENU 07-20 03:29
PROVIDERS: ADMIT Student in an Organized Health Care Education/Training Program; ATTEND Student in an Organized Health Care Education/Training Program